=== PATIENT | female | born 1960 | race Caucasian/White ===

== ENCOUNTER 2024-02-26 08:05 | Emergency (ER) | payer OTHER ==
[2024-02-26] MEDS: Ondansetron 4 MG Tab.DIS PO ONE (08:54)
[2024-02-26] MEDS: Meclizine 12.5 MG Tab PO ONE (08:55)
== END 2024-02-26 09:30 | disposition home or self-care (01) ==
LOC: CC.ED 08:05
DX: H81.12 Benign paroxysmal vertigo, left ear (principal); F17.210 Nicotine dependence, cigarettes, uncomplicated; Z79.899 Other long term (current) drug therapy
CPT/HCPCS: 99283; A9270-GY

== ENCOUNTER 2024-06-30 18:23 | Emergency (ER) | payer OTHER ==
[2024-06-30 18:54] VITALS: BP 127/73; PULSE 89
[2024-06-30] MEDS: Ketorolac 30 MG/ML SDV IM ONE (19:11)
[2024-06-30] MEDS: Take Home: Cyclobenzaprine 10 MG Tab, 4 Tab Pack PO ONE (19:14)
== END 2024-06-30 19:26 | disposition home or self-care (01) ==
LOC: CC.ED 18:23
DX: S46.912A Strain of unspecified muscle, fascia and tendon at shoulder and upper arm level, left arm, initial encounter (principal); M62.838 Other muscle spasm; E78.00 Pure hypercholesterolemia, unspecified; F17.210 Nicotine dependence, cigarettes, uncomplicated; Z90.49 Acquired absence of other specified parts of digestive tract; Z90.710 Acquired absence of both cervix and uterus; Z79.899 Other long term (current) drug therapy; X50.1XXA Overexertion from prolonged static or awkward postures, initial encounter
CPT/HCPCS: 73030-LT; 96372; 99283; A9270-GY; J1885

== ENCOUNTER 2024-10-21 01:30 | Emergency (ER) | payer SELFPAY ==
[2024-10-21 01:45] LABS: APPEARANCE,URINE SLIGHTLY CLOUDY (CLEAR); BILIRUBIN,URINE NEGATIVE (NEGATIVE); COLOR,URINE RED (YELLOW); GLUCOSE,URINE NEGATIVE (NEGATIVE); KETONES,URINE NEGATIVE (NEGATIVE); LEUKOCYTE ESTERASE,URINE LARGE (NEGATIVE); NITRITE,URINE POSITIVE (NEGATIVE); OCCULT BLOOD,URINE LARGE (NEGATIVE); PROTEIN,URINE >=300 mg/dL (NEGATIVE)
[2024-10-21 01:52] LABS: BACTERIA,URINE MODERATE /HPF (NOT SEEN); EPITHELIAL CELLS,URINE NOT SEEN /HPF (NOT SEEN); MUCUS,URINE OCCASIONAL /HPF (NOT SEEN); RBC,URINE 20-30 /HPF (0-5); WBC,URINE 40-50 /HPF (0-5)
[2024-10-21] MEDS: Sulfamethoxazole/Trimethoprim 800-160 MG Tab PO ONE (02:21)
== END 2024-10-21 02:35 | disposition home or self-care (01) ==
LOC: CC.ED 01:30
DX: N39.0 Urinary tract infection, site not specified (principal); F17.210 Nicotine dependence, cigarettes, uncomplicated; Z79.899 Other long term (current) drug therapy; Z79.811 Long term (current) use of aromatase inhibitors; Z90.49 Acquired absence of other specified parts of digestive tract; Z90.710 Acquired absence of both cervix and uterus
CPT/HCPCS: 51702; 81001; 87086; 87088; 87186; 99283; 99284; A9270-GY

== ENCOUNTER 2025-05-31 15:50 | Emergency (ER) | payer OTHER ==
[2025-05-31 16:30] LABS: BASOPHILS ABSOLUTE AUTO 0.05 10^3/uL (0.00-0.50); BASOPHILS PERCENT AUTO 0.6 % (0-1); EOSINOPHILS ABSOLUTE AUTO 0.45 10^3/uL (0.00-1.50); EOSINOPHILS PERCENT AUTO 5.6 % (0-6); IMMATURE GRAN ABSOLUTE AUTO 0.02 10^3/uL (0.00-0.49); IMMATURE GRAN PERCENT AUTO 0.2 % (0.0-4.9); LYMPHOCYTES ABSOLUTE AUTO 1.32 10^3/uL (0.60-5.00); LYMPHOCYTES PERCENT AUTO 16.5 % (24-44); MONOCYTES ABSOLUTE AUTO 0.67 10^3/uL (0.00-1.50); MONOCYTES PERCENT AUTO 8.4 % (0-10); NEUTROPHILS ABSOLUTE AUTO 5.50 x10^3/uL (1.80-8.00); NEUTROPHILS PERCENT AUTO 68.7 % (41-71); PLATELET COUNT,PLT 235 10^3/uL (150-400); RED BLOOD CELL COUNT 5.36 x10^6/uL (4.00-5.50); WHITE BLOOD CELL COUNT,WBC 8.0 10^3/uL (4.0-11.0)
[2025-05-31 16:44] LABS: ALANINE AMINOTRANSFERASE,ALT 35 U/L (12-78); ASPARTATE AMNIOTRANSFERASE,AST 19 U/L (15-37); BILIRUBIN TOTAL 0.2 mg/dL (0.0-1.0); BLOOD UREA NITROGEN,BUN 12 mg/dL (7-18); CARBON DIOXIDE,CO2 26 mmol/L (21-32); CHLORIDE,CL 104 mEq/L (98-106); CREATININE 0.7 mg/dL (0.6-1.0); EST CRCL DRUG DOSING (CG) 83.73 mL/min; GLUCOSE RANDOM 124 mg/dL (75-99); POTASSIUM,K 3.8 mEq/L (3.5-5.0); PROTEIN TOTAL,TP 7.1 g/dL (6.4-8.2); SODIUM,NA 141 mEq/L (136-145)
[2025-05-31 16:48] LABS: ESTIMATED GFR 96 mL/min (>=60)
[2025-05-31 17:07] LABS: CORONAVIRUS COVID-19 NAA NEGATIVE (NEGATIVE); INFLUENZA A NAA NEGATIVE (NEGATIVE); INFLUENZA B NAA NEGATIVE (NEGATIVE)
== END 2025-05-31 17:35 | disposition home or self-care (01) ==
LOC: CC.ED 15:50
DX: J20.9 Acute bronchitis, unspecified (principal); E78.00 Pure hypercholesterolemia, unspecified; Z79.899 Other long term (current) drug therapy; Z90.49 Acquired absence of other specified parts of digestive tract
CPT/HCPCS: 36415; 71046; 80053; 85025; 86140; 87636; 99283; 99285; A9270-GY; J7512